=== PATIENT | male | born 1995 | race Hispanic/Latino ===

== ENCOUNTER 2017-06-17 09:07 | Emergency (ER) | payer BC ==
[~2017-06-17] VITALS: Ht 177.8 cm; Wt 104.3 kg
[2017-06-17] MEDS ORDERED: KETOROLAC TROMETHAMINE 60 MG/2 ML VIAL IM ONE (09:45)
[2017-06-17] MEDS ORDERED: LIDOCAINE VISC 2% SOLN 15 ML UDC PO ONE (09:45)
[2017-06-17 10:12] VITALS: BP 128/70
== END 2017-06-17 10:16 | disposition home or self-care (01) ==
LOC: FSED 09:07
DX: K01.1 Impacted teeth (principal); J03.90 Acute tonsillitis, unspecified
CPT/HCPCS: 99282; J1885